=== PATIENT | female | born 2000 | race Caucasian/White ===

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

== ENCOUNTER 2020-10-10 14:01 | Emergency (ER) | payer MEDICAID ==
[2020-10-10 14:35] VITALS: BP 162/100; PULSE 111
--- NOTE | 2020-10-10 15:53 | EDM.PDOCBH ---
<Jayant Helms G - Last Filed: 10/10/20 15:49> ED HPI GENERAL MEDICAL PROBLEM - General Chief Complaint: Behavioral/Psych Stated Complaint: SUICIDAL THOUGHTS Time Seen by Provider: 10/10/20 15:35 Source of Information: Reports: Patient, Old Records History Limitations: Reports: No Limitations - History of Present Illness INITIAL COMMENTS - FREE TEXT/NARRATIVE: 19 yo female presents with suicidal ideation. Has not attempted self-harm. No ingestions. Has a pHx of suicidal ideation and was hospitalized in [place] at [facility]. Has been compliant with her meds. Thinks deaths close to her are the trigger. Onset: Gradual Duration: Day(s):, Getting Worse Location: Reports: Generalized Quality: Reports: Other (no pain) Severity: Moderate Improves with: Reports: None Worsens with: Reports: Other (time) Context: Reports: Other (See HPI) Associated Symptoms: Reports: No Other Symptoms Treatments RN ENTEROSTOMAL: Reports: Other (see below) (none) - Related Data Allergies Allergy/AdvReac Type Severity Reaction Status Date / Time Sulfa (Sulfonamide Allergy Cannot Verified 11/05/18 22:56 Antibiotics) Remember Home Meds: Home Meds Mirtazapine 30 mg PO BEDTIME 10/15/18 [History] Etonogestrel [Nexplanon] 68 mg IMPLANT ASDIRECTED 10/10/20 [History] FLUoxetine HCl [Prozac] 40 mg PO DAILY 10/10/20 [History] Past Medical History - Past Health History Medical/Surgical History: Denies Medical/Surgical History HEENT History: Reports: Impaired Vision Psychiatric History: Reports: Anxiety, Depression, Psych Hospitalization(s), PTSD, Suicide Attempt, Suicidal Ideation Social & Family History - Tobacco Use Tobacco Use Status *Q: Never Tobacco User - Caffeine Use Caffeine Use: Reports: Coffee, Energy Drinks, Soda - Recreational Drug Use Recreational Drug Type: Reports: Other (see below) Other Recreational Drug Type: CBD 1-2 times/week ED ROS GENERAL - Review of Systems Review Of Systems: See Below Constitutional: Reports: No Symptoms HEENT: Reports: No Symptoms Respiratory: Reports: No Symptoms Cardiovascular: Reports: No Symptoms Endocrine: Reports: No Symptoms GI/Abdominal: Reports: No Symptoms : Reports: No Symptoms Musculoskeletal: Reports: No Symptoms Skin: Reports: No Symptoms Neurological: Reports: No Symptoms Psychiatric: Reports: Depression, Suicidal Ideation ED EXAM, BEHAVIORAL HEALTH - Physical Exam Exam: See Below Exam Limited By: No Limitations General Appearance: Alert, WD/WN, No Apparent Distress, Obese Eye Exam: Bilateral Eye: Normal Inspection Ears: Normal External Exam, Normal Canal, Hearing Grossly Normal, Normal TMs Nose: Normal Inspection, No Blood Throat/Mouth: Normal Inspection, Normal Lips, Normal Oropharynx, Normal Voice, No Airway Compromise Head: Atraumatic, Normocephalic Neck: Normal Inspection Respiratory/Chest: No Respiratory Distress, Lungs Clear, Normal Breath Sounds, No Accessory Muscle Use Cardiovascular: Regular Rate, Rhythm, No Edema GI/Abdominal: Soft, Non-Tender, No Distention Back Exam: Normal Inspection, CVA Tenderness (R), CVA Tenderness (L) Extremities: Normal Inspection, Normal Range of Motion, Non-Tender, No Pedal Edema. No: Pedal Edema Neurological: Alert, Normal Mood/Affect, CN II-XII Intact, Normal Cognition, No Motor/Sensory Deficits, Oriented x 3 Psychiatric: Alert, Normal Affect, Normal Cognition, Normal Mood, Oriented Skin Exam: Warm, Dry, Intact, Normal color, No rash Departure - Departure Disposition: Home, Self-Care 01 Clinical Impression: Self-harm - Discharge Information Instructions: Self-Harming Behavior Information Referrals: Estrellita Garvin PA-C [Primary Care Provider] - Forms: ED Department Discharge Additional Instructions: Continue with your regular medications, continue with your counseling call return to the emergency department worsening of symptoms Sepsis Event Note (ED) - Evaluation Sepsis Screening Result: No Definite Risk <OfficerLudin - Last Filed: 10/10/20 23:10> COURSE, BEHAVIORAL HEALTH COMP - Course Vital Signs: Last Vital Signs Temp 97.6 F 10/10/20 14:59 Pulse 111 H 10/10/20 14:59 Resp 18 10/10/20 14:59 BP 162/100 H 10/10/20 14:59 Pulse Ox 98 10/10/20 14:59 Orders, Labs, Meds: Laboratory Tests 10/10/20 Range/Units 16:17 Urine Opiates Screen Negative (NEGATIVE) Ur Oxycodone Screen Negative (NEGATIVE) Urine Methadone Screen Negative (NEGATIVE) Ur Propoxyphene Screen Negative (NEGATIVE) Ur Barbiturates Screen Negative (NEGATIVE) Ur Tricyclics Screen Negative (NEGATIVE) Ur Phencyclidine Scrn Negative (NEGATIVE) Ur Amphetamine Screen Negative (NEGATIVE) U Methamphetamines Scrn Negative (NEGATIVE) Urine MDMA Screen Negative (NEGATIVE) U Benzodiazepines Scrn Negative (NEGATIVE) U Cocaine Metab Screen Negative (NEGATIVE) U Marijuana (THC) Screen Presumptive positive H (NEGATIVE) Departure - Departure Time of Disposition: 23:09 Condition: Fair Sepsis Event Note (ED) - Focused Exam Vital Signs: Vital Signs Temp Pulse Resp BP Pulse Ox 10/10/20 14:59 97.6 F 111 H 18 162/100 H 98 10/10/20 14:34 97.6 F 111 H 18 162/100 H 98 - Assessment/Plan Plan: Assessment Acuity = acute Site and laterality = suicidal ideation Etiology = unknown Manifestations = none Location of injury = Home Lab values = urine drug screen positive for cannabis Plan Crisis team was contacted after review with crisis team felt safety contract in place and follow-up with counseling in town services already contacted This note was dictated using [employer] voice recognition software please call with any questions on syntax or grammar.
== END 2020-10-10 23:17 | disposition home or self-care (01) ==
LOC: JP.ED 14:01
DX: F32.9 Major depressive disorder, single episode, unspecified (principal); Z88.2 Allergy status to sulfonamides
CPT/HCPCS: 80305-QW; 99284

== ENCOUNTER 2020-12-19 21:04 | Emergency (ER) | payer MEDICAID ==
[2020-12-19 21:51] VITALS: BP 158/101; PULSE 98
--- NOTE | 2020-12-19 21:51 | EDM.PDOCBH ---
ED HPI GENERAL MEDICAL PROBLEM - General Chief Complaint: Behavioral/Psych Stated Complaint: mental health eval Time Seen by Provider: 12/19/20 21:51 Source of Information: Reports: Patient, Other History Limitations: Reports: No Limitations - History of Present Illness INITIAL COMMENTS - FREE TEXT/NARRATIVE: 20-year-old female with chronic anxiety and depression, has been out of her medication for the past month. She had a "breakdown" at work today feeling very anxious and tonight was having thoughts of hurting herself if she could not get her medicines refilled. She does not have an appointment till early January. No nausea or vomiting, no self-harm, no specific plan. Onset: Unknown/Unsure Associated Symptoms: Reports: No Other Symptoms Lower Back Pain Score (Numeric/FACES): 3 - Related Data Allergies Allergy/AdvReac Type Severity Reaction Status Date / Time Sulfa (Sulfonamide Allergy Cannot Verified 12/19/20 21:39 Antibiotics) Remember Home Meds: Home Meds Mirtazapine 30 mg PO BEDTIME 10/15/18 [History] Etonogestrel [Nexplanon] 68 mg IMPLANT ASDIRECTED 10/10/20 [History] FLUoxetine HCl [Prozac] 40 mg PO DAILY 10/10/20 [History] FLUoxetine [PROzac] 40 mg PO DAILY #14 cap 12/19/20 [Rx] Mirtazapine 30 mg PO DAILY #14 tablet 12/19/20 [Rx] Past Medical History - Past Health History Medical/Surgical History: Denies Medical/Surgical History HEENT History: Reports: Impaired Vision Musculoskeletal History: Reports: Back Pain, Chronic Neurological History: Reports: Headaches, Chronic Psychiatric History: Reports: ADHD, Anxiety, Depression, Panic Attack, Psych Hospitalization(s), PTSD, Suicide Attempt, Suicidal Ideation Endocrine/Metabolic History: Reports: Obesity/BMI 30+ Social & Family History - Tobacco Use Tobacco Use Status *Q: Never Tobacco User - Caffeine Use Caffeine Use: Reports: Coffee, Energy Drinks - Recreational Drug Use Recreational Drug Use: Yes Recreational Drug Type: Reports: Marijuana/Hashish Recreational Drug Use Frequency: Monthly ED ROS GENERAL - Review of Systems Review Of Systems: See Below Constitutional: Denies: Fever, Chills Respiratory: Denies: Shortness of Breath Cardiovascular: Denies: Chest Pain GI/Abdominal: Reports: No Symptoms Skin: Reports: No Symptoms Neurological: Denies: Headache Psychiatric: Reports: Anxiety, Depression ED EXAM, BEHAVIORAL HEALTH - Physical Exam Exam: See Below Exam Limited By: No Limitations General Appearance: Alert, No Apparent Distress Eye Exam: Bilateral Eye: Normal Inspection Head: Atraumatic Respiratory/Chest: No Respiratory Distress, Lungs Clear Cardiovascular: Regular Rate, Rhythm Neurological: Alert, Normal Mood/Affect Psychiatric: Alert, Normal Affect Skin Exam: Warm, Dry COURSE, BEHAVIORAL HEALTH COMP - Course Vital Signs: Last Vital Signs Temp 98.2 F 12/19/20 21:44 Pulse 98 12/19/20 21:44 Resp 18 12/19/20 21:44 BP 158/101 H 12/19/20 21:44 Pulse Ox 100 12/19/20 21:44 Orders, Labs, Meds: Medications Discontinued Medications Generic Name Dose Route Start Last Admin Trade Name Genevieve PRN Reason Stop Dose Admin Fluoxetine HCl 40 mg 12/19/20 22:00 12/19/20 22:17 Fluoxetine 10 Mg Cap PO 12/19/20 22:01 40 mg ONETIME ONE Administration Fluoxetine HCl Confirm 12/19/20 22:15 12/19/20 22:19 Fluoxetine 20 Mg Cap Administered 12/19/20 22:16 Not Given Dose 40 mg .ROUTE .STK-MED ONE Mirtazapine 30 mg 12/19/20 21:57 12/19/20 22:17 Mirtazapine 15 Mg Tab PO 12/19/20 21:58 30 mg ONETIME ONE Administration Re-Assessment/Re-Exam: Patient was given 30 mg of mirtazapine and 40 mg of Prozac, prescriptions were written for 2 weeks with the medications. Her friend who was with her said she will watch her for the next 48 hours and they both were reassuring that she would not hurt herself over the next few days. She needs to contact her primary providers for refills. Departure - Departure Time of Disposition: 22:20 Disposition: Home, Self-Care 01 Clinical Impression: Depressive disorder, Suicidal ideation - Discharge Information Prescriptions: Mirtazapine 30 mg PO DAILY #14 tablet FLUoxetine [PROzac] 40 mg PO DAILY #14 cap Instructions: Managing Depression, Adult, Suicidal Feelings: How to Help Yourself, Major Depressive Disorder, Adult Referrals: PCP,None [Primary Care Provider] - Forms: ED Department Discharge Care Plan Goals: Restart your medications, and sometime over the next 2 weeks contact your primary provider for a refill of medication Sepsis Event Note (ED) - Evaluation Sepsis Screening Result: No Definite Risk - Focused Exam Vital Signs: Vital Signs Temp Pulse Resp BP Pulse Ox 12/19/20 21:44 98.2 F 98 18 158/101 H 100
[2020-12-19] MEDS ORDERED: Mirtazapine 15 MG Tab PO ONE (21:57)
[2020-12-19] MEDS ORDERED: FLUoxetine 10 MG Cap PO ONE ×2 (21:58→22:00)
[2020-12-19] MEDS ORDERED: FLUoxetine 20 MG Cap ONE (22:15)
== END 2020-12-19 22:26 | disposition home or self-care (01) ==
LOC: JP.ED 21:04
DX: R45.851 Suicidal ideations (principal); F32.A Depression, unspecified; E66.9 Obesity, unspecified; Z88.2 Allergy status to sulfonamides; Z79.899 Other long term (current) drug therapy
CPT/HCPCS: 99284; A9270